=== PATIENT | male | born 1955 | race Caucasian/White ===

== ENCOUNTER 2017-09-15 11:51 | Emergency (ER) | payer OTHER ==
[~2017-09-15] VITALS: Ht 175.3 cm; Wt 102.2 kg
[2017-09-15 14:39] VITALS: BP 147/92
== END 2017-09-15 14:46 | disposition home or self-care (01) ==
LOC: ER 11:52
DX: G89.29 Other chronic pain (principal); M54.9 Dorsalgia, unspecified; M54.2 Cervicalgia; F12.10 Cannabis abuse, uncomplicated; Z98.890 Other specified postprocedural states
CPT/HCPCS: 99281